=== PATIENT | female | born 1965 | race Caucasian/White ===

== ENCOUNTER 2018-02-20 21:59 | Emergency (ER) | payer OTHER ==
[2018-02-20] MEDS: DIPHENHYDRAMINE 50 MG INJ IV (23:02)
[2018-02-20] MEDS: METOCLOPRAMIDE 10 MG INJ IV (23:02)
[2018-02-20] MEDS: ACETAMINOPHEN 500 MG TAB PO (23:03)
[2018-02-20] MEDS: SOD CHLORIDE 0.9% 1,000 ML IV (23:03)
[2018-02-21] MEDS: KETOROLAC 15 MG INJ IV (00:47)
== END 2018-02-21 01:02 | disposition home or self-care (01) ==
LOC: E/R 02-21 01:02
DX: G44.209 Tension-type headache, unspecified, not intractable (principal); E11.9 Type 2 diabetes mellitus without complications
CPT/HCPCS: 70450; 81025; 96374; 96375; 99285-25

== ENCOUNTER 2018-06-09 10:23 | Emergency (ER) | payer OTHER | END 2018-06-09 13:57 | disposition home or self-care (01) | LOC: FTE 10:23 | DX: H92.02 Otalgia, left ear (principal); E11.9 Type 2 diabetes mellitus without complications | CPT/HCPCS: 99283; Z7502 ==